=== PATIENT | female | born 1950 ===

== ENCOUNTER 2023-09-20 13:19 | Outpatient (AMB) | payer MEDICARE, OTHER, SELFPAY ==
--- NOTE | 2023-09-20 13:25 | AM.OFFWIN_ITS ---
Intake Vital Signs 09/20/23 13:26 Height 5 ft Weight 162 lb BMI 31.6 BP 126/76 Blood Pressure Location Lt brachial Position Sitting Pulse 71 Pulse Source Pulse Oximeter Temp 97.9 F Temp Source Oral Pulse Oximetry (%) 98 Oxygen Delivery Method Room Air Intake Visit Reasons: [employer] LT wrist Injury due to fall Intake Note: pt is here for left wrist injury due to fall at home off stool Patient Tobacco Use Status: Never used Tobacco Allergies No Known Allergies Allergy (Verified 09/20/23 15:48) Do you need a note to return to daycare/school/sports/work: No HPI HPI Comments History of Present Illness Details 73-year-old female that presents for fra cture of the wrist. Patient was working on a stool fell with her outstretched arm. Having left wrist pain and swelling PFSH Social History Patient Tobacco Use Status: Never used Tobacco Substance Use Type: Marijuana Physical Exam Vital Signs: Last Vital Signs Temp 97.9 F 09/20/23 13:26 Pulse 71 09/20/23 13:26 BP 126/76 09/20/23 13:26 Pulse Ox 98 09/20/23 13:26 Oxygen Delivery Method Room Air 09/20/23 13:26 BMI result Body Mass Index 31.6 Const General: cooperative, healthy appearing, no acute distress and alert Orientation/consciousness: patient oriented x3 Limitations: no limitations HEENT Head: Yes normal to inspection Ears: hearing grossly normal bilaterally General nose exam: Normal external nose present Resp Effort & Inspection: normal respiratory effort and able to speak in complete sentences Cardio Rate: regular rate Skin General skin exam: no rashes or lesions noted Neuro General: patient oriented x3 Extrem Other: Swelling at the left wrist. No obvious bruising. Neurovascularly intact. General: Yes normal to inspection Assessment & Plan Assessment & Plan (1) Distal radius fracture, left: Code(s): S52.502A - Unspecified fracture of the lower end of left radius, initial encounter for closed fracture Qualifiers: Encounter type: initial encounter Fracture type: closed Fracture morphology: unspecified fracture morphology Qualified Code(s): S52.502A - Unspecified fracture of the lower end of left radius, initial encounter for closed fracture Plan: VSS. Suspect distal radius fracture will order x-rays of the wrist forearm and elbow. X-rays consistent with Distal radius fracture of the left wrist. Overlap present on examination. Patient is splinted in a volar splint [facility] notify patient will be presenting for reduction. Orders: Orders XR wrist LT min 3V Today W19.XXXA - Unspecified fall, initial encounter XR forearm LT 2V Today W19.XXXA - Unspecified fall, initial encounter XR elbow LT 2V Today W19.XXXA - Unspecified fall, initial encounter Coding Level of Care Code Est Pt Level 4 (69246) Diagnoses Closed fracture of distal end of left radius, unspecified fracture morphology, initial encounter S52.502A Encounter type: initial encounter Fracture type: closed Fracture morphology: unspecified fracture morphology
[2023-09-20 13:26] VITALS: BP 126/76; PULSE 71; TEMP 36.6; O2SAT 98; BMI 31.6
== END 2023-09-20 15:58 | disposition home or self-care (01) ==
PROVIDERS: PCP Internal Medicine; Visit Provider Physician Assistant
DX: S52.502A Unspecified fracture of the lower end of left radius, initial encounter for closed fracture (principal)
CPT/HCPCS: 99214

== ENCOUNTER 2023-09-20 14:07 | Outpatient (REF) | payer MEDICARE, OTHER, SELFPAY ==
--- NOTE | ~2023-09-20 | XR_ITS ---
EXAMINATION: XR wrist LT min 3V, XR forearm LT 2V, XR elbow LT 2V CLINICAL INFORMATION: Reason for Exam W19.XXXA - Unspecified fall, initial encounter COMPARISON: None. TECHNIQUE: 3 view left elbow, 2 view left forearm, 3 view left wrist radiographs. FINDINGS: Left elbow: Bilateral epicondylar enthesopathic changes are noted characterized by well corticated ossific regions without associated donor sites. Radial head appears intact. No joint effusion identified. Diffuse osteopenia. Left forearm and left wrist: A minimally displaced transverse mildly impacted fracture of the distal radial metaphysis is present. The fracture demonstrates minimal dorsal angulation. No intra-articular extension identified. The ulnar styloid process appears intact. Diffuse osteopenia is visualized. Moderate joint space narrowing and subchondral sclerosis of the first carpal metacarpal joint is visualized along with 25% radial subluxation of the first metacarpal. XR/XR elbow LT 2V IMPRESSION: 1. Minimally displaced, impacted transverse fracture of the distal radius without intra-articular extension. 2. Diffuse osteopenia. 3. Moderate osteoarthritis of the first carpometacarpal joint.
--- NOTE | ~2023-09-20 | XR_ITS ---
EXAMINATION: XR wrist LT min 3V, XR forearm LT 2V, XR elbow LT 2V CLINICAL INFORMATION: Reason for Exam W19.XXXA - Unspecified fall, initial encounter COMPARISON: None. TECHNIQUE: 3 view left elbow, 2 view left forearm, 3 view left wrist radiographs. FINDINGS: Left elbow: Bilateral epicondylar enthesopathic changes are noted characterized by well corticated ossific regions without associated donor sites. Radial head appears intact. No joint effusion identified. Diffuse osteopenia. Left forearm and left wrist: A minimally displaced transverse mildly impacted fracture of the distal radial metaphysis is present. The fracture demonstrates minimal dorsal angulation. No intra-articular extension identified. The ulnar styloid process appears intact. Diffuse osteopenia is visualized. Moderate joint space narrowing and subchondral sclerosis of the first carpal metacarpal joint is visualized along with 25% radial subluxation of the first metacarpal. XR/XR forearm LT 2V IMPRESSION: 1. Minimally displaced, impacted transverse fracture of the distal radius without intra-articular extension. 2. Diffuse osteopenia. 3. Moderate osteoarthritis of the first carpometacarpal joint.
--- NOTE | ~2023-09-20 | XR_ITS ---
EXAMINATION: XR wrist LT min 3V, XR forearm LT 2V, XR elbow LT 2V CLINICAL INFORMATION: Reason for Exam W19.XXXA - Unspecified fall, initial encounter COMPARISON: None. TECHNIQUE: 3 view left elbow, 2 view left forearm, 3 view left wrist radiographs. FINDINGS: Left elbow: Bilateral epicondylar enthesopathic changes are noted characterized by well corticated ossific regions without associated donor sites. Radial head appears intact. No joint effusion identified. Diffuse osteopenia. Left forearm and left wrist: A minimally displaced transverse mildly impacted fracture of the distal radial metaphysis is present. The fracture demonstrates minimal dorsal angulation. No intra-articular extension identified. The ulnar styloid process appears intact. Diffuse osteopenia is visualized. Moderate joint space narrowing and subchondral sclerosis of the first carpal metacarpal joint is visualized along with 25% radial subluxation of the first metacarpal. XR/XR wrist LT min 3V IMPRESSION: 1. Minimally displaced, impacted transverse fracture of the distal radius without intra-articular extension. 2. Diffuse osteopenia. 3. Moderate osteoarthritis of the first carpometacarpal joint.
== END 2023-09-20 14:08 | disposition home or self-care (01) ==
LOC: HO.HMGCX 14:07
PROVIDERS: Visit Provider Physician Assistant
DX: Z13.89 Encounter for screening for other disorder (principal)
CPT/HCPCS: 73070; 73090; 73110

== ENCOUNTER 2023-09-20 15:26 | Emergency (ER) | payer MEDICARE, OTHER, SELFPAY ==
[2023-09-20 15:45] VITALS: BP 176/91; PULSE 83; RESP 18; TEMP 36.9; O2SAT 97; BMI 32.6
--- NOTE | 2023-09-20 15:45 | ED.UPPEXIN ---
HPI - Extremity Injury (Upper) General Chief Complaint: Extremity Injury, Upper Stated Complaint: sent from stating left arm needs traction Time Seen by Provider: 09/20/23 16:38 Source: patient Mode of arrival: ambulatory Limitations: no limitations History of Present Illness HPI narrative: Apparently patient fell on standing on the plastic stool landed on her left hand seen nurse practitioner at urgent care the x-ray showed impacted distal radial fracture advised to come here for reduction no other injury Related Data Home Medications Medication Instructions Recorded Confirmed albuterol sulfate 90 mcg/actuation inhalation 09/20/23 aerosol inhaler amlodipine 5 mg tablet 5 mg PO DAILY 09/20/23 atorvastatin 10 mg tablet 10 mg PO DAILY 09/20/23 citalopram 20 mg tablet 20 mg PO DAILY 09/20/23 montelukast 10 mg tablet 10 mg PO DAILY 09/20/23 Previous Rx's Medication Instructions Recorded tramadol 50 mg tablet 50 mg PO Q6-8H PRN pain #20 tabs 09/20/23 Allergies Allergy/AdvReac Type Severity Reaction Status Date / Time No Known Allergies Allergy Verified 09/20/23 15:48 Review of Systems Review of Systems: Yes all other systems are reviewed and are negative [facility] Social History Social History Patient Tobacco Use Status: Never used Tobacco Smoked in Last 30 Days: No Use of substances other than those prescribed or required for medical reasons: Yes Substance Use Type: Marijuana Substance Use Frequency: Weekly Substance Use Frequency Other:: 2 Last Used Substance: Weeks (ago) Advance Directives: No Advance Directives Information Provided: No Physical Exam Vital Signs: Vital Signs: Last Vital Signs Temp 98.5 F 09/20/23 15:45 Pulse 83 09/20/23 15:45 Resp 18 09/20/23 15:45 BP 176/91 H 09/20/23 15:45 Pulse Ox 97 09/20/23 15:45 O2 Del Method Room Air 09/20/23 15:45 BMI result Body Mass Index 32.6 Extrem: Elbow/forearm/wrist images: 1. Mild swelling in volar wrist splint neurovascular intact Course Course Course Narrative: This is a rapid medical exam: Additional HPI, ROS, PE not included below will be deferred to primary provider. Patient is a 73-year-old female presenting to the emergency department from urgent care with known distal radius fracture requiring reduction. She arrives with L wrist splinted. She fell off a small plastic stool earlier today, turned and fell. Denies head strike or loss of consciousness, not anticoagulated. Plan: x-ray, likely needs reduction Medical Decision Making Medical Decision Making MDM Narrative: Patient impacted left distal and radial fracture case discussed with orthopedic does not need reduction at this time follow-up with outpatient Independent Interpretation I performed an independent interpretation of an: Plain X-Ray Radiology Impression Discussion of test interpretation with radiology: I have reviewed the radiologist's reading. Radiologist Impression: XR/XR wrist LT min 3V IMPRESSION: 1. Minimally displaced, impacted transverse fracture of the distal radius without intra-articular extension. 2. Diffuse osteopenia. 3. Moderate osteoarthritis of the first carpometacarpal joint. Discharge Plan Discharge Clinical Impression: Distal radius fracture, left Patient Disposition: Home, Self-Care Instructions: Wrist Fracture in Adults (ED) Additional Instructions: Wear the splint and sling for support as advised Follow-up with orthopedics next week Tramadol for pain Keep left arm elevated Prescriptions: New tramadol 50 mg tablet 50 mg PO Q6-8H PRN (Reason: pain) Qty: 20 0RF No Action atorvastatin 10 mg tablet 10 mg PO DAILY montelukast 10 mg tablet 10 mg PO DAILY albuterol sulfate 90 mcg/actuation HFA aerosol inhaler inhalation amlodipine 5 mg tablet 5 mg PO DAILY citalopram 20 mg tablet 20 mg PO DAILY Referrals: Jered Stoddard MD [Physician] - 3 days
[2023-09-20] MEDS: Ketorolac Tromethamine 30 MG/ML VIAL IVPUSH (17:29)
[2023-09-20 17:30] VITALS: BP 157/75; PULSE 84; RESP 16; O2SAT 98
[2023-09-20 18:01] VITALS: BP 159/81; PULSE 85; RESP 16; TEMP 36.8; O2SAT 98
== END 2023-09-20 18:12 | disposition home or self-care (01) ==
PROVIDERS: Emergency Provider Internal Medicine; PCP Internal Medicine
DX: S52.502A Unspecified fracture of the lower end of left radius, initial encounter for closed fracture (principal); W08.XXXA Fall from other furniture, initial encounter; Y93.9 Activity, unspecified; Y92.9 Unspecified place or not applicable; Y99.9 Unspecified external cause status
CPT/HCPCS: 73070; 73090; 73110; 96374; 99284; J1885

== ENCOUNTER 2023-09-22 09:45 | Outpatient (REF) | payer MEDICARE, OTHER, SELFPAY ==
--- NOTE | ~2023-09-22 | XR_ITS ---
EXAMINATION: XR WRIST, LEFT CLINICAL INFORMATION: Pain. COMPARISON: Radiograph left wrist 09/20/2023. TECHNIQUE: PA, lateral, and oblique views of the left wrist. FINDINGS: Again noted distal transverse radial fracture with slightly increased dorsal displacement of the distal fragment compared to 09/20/2023, although this subtle change may be related with differences in positioning. Similar degree of surrounding soft tissue swelling. No interval injuries. XR/XR wrist LT min 3V IMPRESSION: Distal radial fracture with possibly slightly increased dorsal displacement of the distal fragment compared to 09/20/2023.
== END 2023-09-22 09:46 | disposition home or self-care (01) ==
LOC: HO.HOSX 09:45
PROVIDERS: Visit Provider Physician Assistant
DX: S52.502A Unspecified fracture of the lower end of left radius, initial encounter for closed fracture (principal); W08.XXXA Fall from other furniture, initial encounter; Y93.9 Activity, unspecified; Y92.9 Unspecified place or not applicable; Y99.9 Unspecified external cause status
CPT/HCPCS: 73110; 99202

== ENCOUNTER 2023-09-22 13:51 | Outpatient (AMB) | payer MEDICARE, OTHER, SELFPAY ==
--- NOTE | 2023-09-22 14:18 | A.OFFVIS_ITS ---
Intake Vital Signs 09/22/23 14:23 Height 5 ft Weight 167 lb BMI 32.6 Intake Visit Reasons: FC - LT Distal radius fx, DOI 09/20/23 Intake Note: Paulina is a 73 year old hand dominant female who presents today for a evaluation of her left distal radius fx, DOI 09/20/23. Patient reports she was standing on a plastic stool when she turned to clean and made her fall onto her left hand. Currently, is having a lot of throbbing pain. Allergies No Known Allergies Allergy (Verified 09/22/23 14:21) HPI FC - LT Distal radius fx, DOI 09/20/23 HPI Details 73-year-old female who presents in the [facility] today, as a new patient, for an evaluation of left wrist pain. Patient [facility] on 09/20/2023 status a fall off a stool while at home. She was placed in a volar splint and was referred to the ED for reduction of the wrist. Patient presented to the ED the same day. It was discussed that the patient did not need her wrist reduced, therefore, she was placed back into the splint with a sling and was given a prescription for Tramadol 50 mg PO Q6-8H PRN. While in the office today she reports she was standing on a plastic stool when she sent to reach and fell. She reports having a lot of throbbing pain. She reports taking the Tramadol but is not getting relief. She states she has been taking Motrin with mild relief. Patient presents in the office with a male family member. [facility] Social History (Updated 09/22/23 @ 14:23 by Tyler Roque) Alcohol intake: current Alcohol intake frequency: 0-2 drinks per day Alcohol type: other Patient Tobacco Use Status: Never used Tobacco Substance Use Type: Marijuana Current occupational status: retired Current occupation: right hand dominant Review of Systems Const All systems reviewed & are unremarkable except as noted in HPI and below Physical Exam Vital Signs: BMI result Body Mass Index 32.6 Const General: cooperative and no acute distress Orientation/consciousness: patient oriented x3 Resp Effort & Inspection: normal respiratory effort and able to speak in complete sentences Cardio Rate: regular rate Peripheral pulses: Peripheral pulses 2+ throughout GI Palpation (GI): Soft to palpation Skin General skin exam: no rashes or lesions noted Lesions: no lesions Rashes: no rashes Neuro General: patient oriented x3 Extrem Other: Left wrist: Circumferential edema extending to the dorsal aspect of the hand. Able to flex and extend all digits. Lacking 4 cm from making a closed fist. Sensation intact. Capillary refill is brisk. Radial pulse intact. Tenderness to palpation at the fracture site. Office Procedures Casting/Splints Other Splint (volar short arm splint) Procedure code (CPT) selection complete Fracture Care Fracture Billing Code: Fracture Billing Code Assessment & Plan Assessment & Plan (1) Distal radius fracture, left: Comment: Minimally displaced, impacted transverse fracture of the distal radius without intra-articular extension. Code(s): S52.502A - Unspecified fracture of the lower end of left radius, initial encounter for closed fracture Qualifiers: Encounter type: initial encounter Fracture morphology: unspecified fracture morphology Fracture type: closed Qualified Code(s): S52.502A - Unspecified fracture of the lower end of left radius, initial encounter for closed fracture Plan Ms. Arvizu is a 73-year-old female who presents in the office today, as a new patient, for an evaluation of left wrist pain. Patient presented to the [facility] on 09/20/2023 status a fall off a stool while at home. She was placed in a volar splint and was referred to the ED for reduction of the wrist. Patient presented to the ED the same day. It was discussed that the patient did not need her wrist reduced, therefore, she was placed back into the splint with a sling and was given a prescription for Tramadol 50 mg PO Q6-8H PRN. While in the office today she reports she was standing on a plastic stool when she sent to reach and fell. She reports having a lot of throbbing pain. She reports taking the Tramadol but is not getting relief. She states she has been taking Motrin with mild relief. Patient presents in the office with a male family member. Dr. Castañeda was available to speak with me about the case and review x-rays, she was not available to see the patient due to being in the OR and a col laborative treatment plan was made. We discussed conservative verses surgical treatment. At this time we will closely monitor the alignment of the left wrist. We would like to repeat x-rays in one week. She was placed in the a new volar splint, off the shelf, while in the office today. A prescription for Ibuprofen 600 mg TID PRN was sent to the pharmacy. I encouraged the patient to rest the left upper extremity on a pillow to help with edema in the extremity. We discussed working on gentle ROM and making a closed fist with fingers. Follow up will be in one week with repeat x-rays with Dr. Castañeda in the office, or sooner if needed. X-rays of the left wrist which were obtained while in the office today and were reviewed by me, Naida Brown PA-C, revealed a distal radius fracture. X-rays of the left upper extremity, obtained on 09/20/2023 at the [facility], revealed: 1. Minimally displaced, impacted transverse fracture of the distal radius without intra-articular extension. 2. Diffuse osteopenia. 3. Moderate osteoarthritis of the first carpometacarpal joint. Orders: Orders XR wrist LT min 3V Today M25.539 - Pain in unspecified wrist Medications: New ibuprofen 600 mg PO TID PRN 90 tabs 0RF pain 30 days Patient Instructions: Scribed by Yesenia Alvarado medical transcription editor, for Naida Brown PA-C on 09/22/2023 at 1:53 pm, EST. Coding Level of Care Code New Pt Level 4 (68867) Diagnoses Closed fracture of distal end of left radius, unspecified fracture morphology, initial encounter S52.502A Encounter type: initial encounter Fracture morphology: unspecified fracture morphology Fracture type: closed CPT Codes Fracture Care - Fracture Billing Code: Fracture Billing Code ([id number])
[2023-09-22 14:23] VITALS: BMI 32.6
== END 2023-09-22 15:37 | disposition home or self-care (01) ==
PROVIDERS: PCP Internal Medicine; Visit Provider Physician Assistant
DX: S52.502A Unspecified fracture of the lower end of left radius, initial encounter for closed fracture (principal)
CPT/HCPCS: 99203

== ENCOUNTER 2023-09-30 11:25 | Outpatient (REF) | payer MEDICARE, OTHER, SELFPAY ==
--- NOTE | ~2023-09-30 | XR_ITS ---
EXAMINATION: XR WRIST, LEFT CLINICAL INFORMATION: Pain and unspecified rest, splint off. COMPARISON: 09/29/2023, 09/20/2003 TECHNIQUE: PA, lateral, and oblique views of the left wrist. FINDINGS: Redemonstration of a transverse fracture of the distal radius with slight dorsal displacement of the distal fracture fragment. There appears to be slightly more displacement/impaction, best appreciated on the oblique view, although this apparent change could be related to differences in positioning. Persistent soft tissue swelling at the wrist. Bones are diffusely demineralized. Multiple joint arthritic changes. XR/XR wrist LT min 3V IMPRESSION: Redemonstration of a transverse fracture of the distal radius with slight dorsal displacement of the distal fracture fragment. There appears to be slightly more displacement/impaction, best appreciated on the oblique view, although this apparent change could be related to differences in positioning.
== END 2023-09-30 11:26 | disposition home or self-care (01) ==
LOC: HO.HOSX 11:25
PROVIDERS: Visit Provider Physician Assistant
DX: S52.502D Unspecified fracture of the lower end of left radius, subsequent encounter for closed fracture with routine healing (principal); S62.647D Nondisplaced fracture of proximal phalanx of left little finger, subsequent encounter for fracture with routine healing
CPT/HCPCS: 25600; 26720; 73110; 99212

== ENCOUNTER 2023-09-30 14:21 | Outpatient (AMB) | payer MEDICARE, OTHER, SELFPAY ==
--- NOTE | 2023-09-30 14:35 | MHC.OFFVIS ---
Intake Vital Signs 09/30/23 14:36 Height 5 ft Weight 167 lb BMI 32.6 Intake Visit Reasons: ov-LT Distal radius fx, DOI 09/20/23 Intake Note: Paulnia is a 73 year old right hand dominant female who presents today for a follow up of her left distal radius fx, DOI 09/20/23. Patient reports she is still having pain on the lateral side of her hand and also on the volar aspect of the wrist. Denies numbness and tignling. Allergies No Known Allergies Allergy (Verified 09/30/23 14:36) HPI ov-LT Distal radius fx, DOI 09/20/23 HPI Details 73-year-old right hand dominant female who presents in the office today for a follow up of a left distal radius fracture, which occurred on 09/20/2023 status a fall off a stool while at home. I last saw the patient in the office on 09/22/2023 at which time she was placed in a volar wrist splint and she was prescribed Ibuprofen 600 mg TID PRN. While in the office today the patient reports she is still having pain on the lateral aspect of the left hand and volar aspect of the left wrist. She denies numbness or tingling. Patient reports pain in the left ring finger. [facility] Social History Alcohol intake: current Alcohol intake frequency: 0-2 drinks per day Alcohol type: other Patient Tobacco Use Status: Never used Tobacco Substance Use Type: Marijuana Current occupational status: retired Current occupation: right hand dominant Review of Systems Const All systems reviewed & are unremarkable except as noted in HPI and below Physical Exam Vital Signs: BMI result Body Mass Index 32.6 Const General: cooperative, healthy appearing and no acute distress Resp Effort & Inspection: normal respiratory effort and able to speak in complete sentences Cardio Rate: regular rate Peripheral pulses: Peripheral pulses 2+ throughout GI Palpation (GI): Soft to palpation Skin Lesions: no lesions Rashes: no rashes Extrem Other: Left wrist/hand: Normal to inspection. Tenderness to palpation over the distal radius as well as tenderness to palpation over the middle phalanx of the little finger. Able to make a full fist and extension of all digits. Sensation intact. Capillary refill is brisk. Office Procedures Casting/Splints 25134-Siku/Wrist Cast Application Procedure code (CPT) selection complete Assessment & Plan Assessment & Plan (1) Distal radius fracture, left: Comment: Minimally displaced, impacted transverse fracture of the distal radius without intra-articular extension. Code(s): S52.502A - Unspecified fracture of the lower end of left radius, initial encounter for closed fracture Qualifiers: Encounter type: initial encounter Fracture morphology: unspecified fracture morphology Fracture type: closed Qualified Code(s): S52.502A - Unspecified fracture of the lower end of left radius, initial encounter for closed fracture (2) Fracture of phalanx of left little finger: Code(s): S62.607A - Fracture of unspecified phalanx of left little finger, initial encounter for closed fracture Qualifiers: Encounter type: subsequent encounter Fracture alignment: nondisplaced Fracture healing: with routine healing Fracture type: closed Phalanx: proximal Qualified Code(s): S62.647D - Nondisplaced fracture of proximal phalanx of left little finger, subsequent encounter for fracture with routine healing Plan Ms. Arvizu is a 73-year-old right hand dominant female who presents in the office today for a follow up of a left distal radius fracture, which occurred on 09/20/2023 status a fall off a stool while at home. I last saw the patient in the office on 09/22/2023 at which time she was placed in a volar wrist splint and she was prescribed Ibuprofen 600 mg TID PRN. While in the office today the patient reports she is still having pain on the lateral aspect of the left hand and volar aspect of the left wrist. She denies numbness or tingling. Patient reports pain in the left ring finger. Imaging was reviewed with Dr. Castañeda who was available to speak with me, but not available to see the patient. A collaborative treatment plan was made. Patient will be placed in a custom made short arm cast with a finger splint on the little finger locked in extension. She will be able to move at the MCP joint of the 5th digit. She was educated to refrain from lifting anything greater than a coffee cup or cell phone. Also no pushing or pulling with the left upper extremity. Follow up will be in 3 weeks with repeat x-rays and anticipation of coming out of the cast, or sooner if needed. X-rays of the left wrist which were obtained while in the office today and were reviewed by me, Naida Brown PA-C, revealed routine healing of a left distal radius fracture with no evidence of progressive dorsal angulation. Likely fracture at the proximal end of the middle phalanx of the small finger. Orders: Orders XR wrist LT min 3V Today M25.539 - Pain in unspecified wrist Patient Instructions: Scribed by Yesenia Alvarado medical technologist clinical, for Naida Brown PA-C on 09/30/2023 at 2:42 pm, EST. Coding Level of Care Code Global (88266) Diagnoses Closed fracture of distal end of left radius, unspecified fracture morphology, initial encounter S52.502A Encounter type: initial encounter Fracture morphology: unspecified fracture morphology Fracture type: closed Closed nondisplaced fracture of proximal phalanx of left little finger with routine healing, subsequent encounter S62.647D Encounter type: subsequent encounter Fracture alignment: nondisplaced Fracture healing: with routine healing Fracture type: closed Phalanx: proximal CPT Codes Casting - CPT: 95379-Szny/Wrist Cast Application ([id number])
[2023-09-30 14:36] VITALS: BMI 32.6
== END 2023-09-30 15:50 | disposition home or self-care (01) ==
PROVIDERS: PCP Internal Medicine; Visit Provider Physician Assistant
DX: S52.502A Unspecified fracture of the lower end of left radius, initial encounter for closed fracture (principal); S62.647D Nondisplaced fracture of proximal phalanx of left little finger, subsequent encounter for fracture with routine healing
CPT/HCPCS: 25600; 26720; 99213

== ENCOUNTER 2023-10-21 14:24 | Outpatient (AMB) | payer MEDICARE, OTHER, SELFPAY ==
[2023-10-21 14:45] VITALS: BMI 32.6
--- NOTE | 2023-10-21 14:45 | A.OFFVIS_ITS ---
Intake Vital Signs 10/21/23 14:45 Height 5 ft Weight 167 lb BMI 32.6 Intake Visit Reasons: OV-LT Distal radius fx, DOI 09/20/23 Intake Note: Paulina Vazquez 73 yr old female presents today for her follow up visit for her left distal radius fx from 09/20/23. Cast removed and xrays updated in office. States she has soreness and minor aches on her dorsaum aspect of wrist. Allergies No Known Allergies Allergy (Verified 10/21/23 14:47) HPI OV-LT Distal radius fx, DOI 09/20/23 HPI Details 73-year-old right hand dominant female delvin malin presents in the office today for a follow up of a left distal radius fracture, which occurred on 09/20/2023 status a fall off a stool while at home. I last saw the patient in the office on 09/30/2023 when she was placed in a short arm cast with a finger splint on the little finger locked in extension, but with the ability to move the MCP joint of the 5th digit. She was educated to refrain from lifting anything greater than a coffee cup or cell phone. Also, no pushing or pulling with the left upper extremity. Cast was removed in the office today. She reports soreness and minor aches on her dorsal aspect of the left wrist. [facility] Social History Alcohol intake: current Alcohol intake frequency: 0-2 drinks per day Alcohol type: other Patient Tobacco Use Status: Never used Tobacco Substance Use Type: Marijuana Current occupational status: retired Current occupation: right hand dominant Review of Systems Const All systems reviewed & are unremarkable except as noted in HPI and below Physical Exam Vital Signs: BMI result Body Mass Index 32.6 Const General: cooperative, healthy appearing and no acute distress Resp Effort & Inspection: normal respiratory effort and able to speak in complete sentences Cardio Rate: regular rate Peripheral pulses: Peripheral pulses 2+ throughout GI Palpation (GI): Soft to palpation Skin Lesions: no lesions Rashes: no rashes Extrem Other: Left wrist/hand: Normal to inspection. Mild tenderness to palpation over the distal radius. Able to perform wrist flexion and extension with stiffness. Able to make a full fist and extension of all digits. Sensation intact. Capillary refill is brisk. Assessment & Plan Assessment & Plan (1) Distal radius fracture, left: Comment: Minimally displaced, impacted transverse fracture of the distal radius without intra-articular extension. Code(s): S52.502A - Unspecified fracture of the lower end of left radius, initial encounter for closed fracture Qualifiers: Encounter type: initial encounter Fracture morphology: unspecified fracture morphology Fracture type: closed Qualified Code(s): S52.502A - Unspecified fracture of the lower end of left radius, initial encounter for closed fracture (2) Fracture of phalanx of left little finger: Code(s): S62.607A - Fracture of unspecified phalanx of left little finger, initial encounter for closed fracture Qualifiers: Encounter type: subsequent encounter Fracture alignment: nondisplaced Fracture healing: with routine healing Fracture type: closed Phalanx: proximal Qualified Code(s): S62.647D - Nondisplaced fracture of proximal phalanx of left little finger, subsequent encounter for fracture with routine healing Plan Ms. Arvizu is a 73-year-old right hand dominant female who presents in the office today for a follow up of a left distal radius fracture, which occurred on 09/20/2023 status a fall off a stool while at home. I last saw the patient in the office on 09/30/2023 when she was placed in a short arm cast with a finger splint on the little finger locked in extension, but with the ability to move the MCP joint of the 5th digit. She was educated to refrain from lifting anything greater than a coffee cup or cell phone. Also, no pushing or pulling with the left upper extremity. Cast was removed in the office today. She reports soreness and minor aches on her dorsal aspect of the left wrist. Patient will be transitioned into a Velcro wrist splint, off the shelf. She was educated to remove the splint for hygiene and gentle ROM exercises only. A referral to OT was placed in the office today to work on gentle ROM. I educated the patient that she needs to attend OT for a few weeks before she should consider driving. OT will tell her when she can properly turn the wheel. A paper prescription for OT was supplied to the patient in the office today. Follow up will be in 4 weeks for a ROM check, or sooner if needed. X-rays of the left wrist/hand which were obtained while in the office today and were reviewed by me, Naida Brown PA-C, revealed routine healing of a left distal radius fracture and left little finger fracture. Orders: Orders XR hand LT min 3V Today M79.643 - Pain in unspecified hand XR wrist LT min 3V Today M25.539 - Pain in unspecified wrist OT Evaluation and Treatment Today S52.502A - Unspecified fracture of the lower end of left radius, initial encounter for closed fracture, S62.647D - Nondisplaced fracture of proximal phalanx of left little finger, subsequent encounter for fracture with routine healing Patient Instructions: Scribed by Yesenia Alvarado medical stenographer, for Naida Brown ABEL on 10/21/2023 at 2:08 pm, EST. Coding Level of Care Code Global (07656) Diagnoses Closed fracture of distal end of left radius, unspecified fracture morphology, initial encounter S52.502A Encounter type: initial encounter Fracture morphology: unspecified fracture morphology Fracture type: closed Closed nondisplaced fracture of proximal phalanx of left little finger with routine healing, subsequent encounter S62.647D Encounter type: subsequent encounter Fracture alignment: nondisplaced Fracture healing: with routine healing Fracture type: closed Phalanx: proximal
== END 2023-10-21 15:37 | disposition home or self-care (01) ==
PROVIDERS: PCP Internal Medicine; Visit Provider Physician Assistant
DX: S52.502A Unspecified fracture of the lower end of left radius, initial encounter for closed fracture (principal); S62.647D Nondisplaced fracture of proximal phalanx of left little finger, subsequent encounter for fracture with routine healing
CPT/HCPCS: 99024

== ENCOUNTER 2023-10-21 15:08 | Outpatient (REF) | payer MEDICARE, OTHER, SELFPAY ==
--- NOTE | ~2023-10-21 | XR_ITS ---
EXAMINATION: XR LEFT HAND AND WRIST CLINICAL INFORMATION: Pain in unspecified hand, cast and finger splint off. COMPARISON: 09/30/2023, 09/22/2023, 09/20/2023. TECHNIQUE: 3 views of the left hand and 3 views of the left wrist. FINDINGS: Bones are diffusely demineralized. Multi joint arthritic changes redemonstrated. Redemonstration of an impacted transverse fracture of the distal radius, similar in alignment. Mild interval bridging callus formation. XR/XR hand LT min 3V IMPRESSION: Redemonstration of an impacted transverse fracture of the distal radius, similar in alignment. Mild interval bridging callus formation.
--- NOTE | ~2023-10-21 | XR_ITS ---
EXAMINATION: XR LEFT HAND AND WRIST CLINICAL INFORMATION: Pain in unspecified hand, cast and finger splint off. COMPARISON: 09/30/2023, 09/22/2023, 09/20/2023. TECHNIQUE: 3 views of the left hand and 3 views of the left wrist. FINDINGS: Bones are diffusely demineralized. Multi joint arthritic changes redemonstrated. Redemonstration of an impacted transverse fracture of the distal radius, similar in alignment. Mild interval bridging callus formation. XR/XR wrist LT min 3V IMPRESSION: Redemonstration of an impacted transverse fracture of the distal radius, similar in alignment. Mild interval bridging callus formation.
== END 2023-10-21 15:09 | disposition home or self-care (01) ==
LOC: HO.HOSX 15:08
PROVIDERS: Visit Provider Physician Assistant
DX: S52.502D Unspecified fracture of the lower end of left radius, subsequent encounter for closed fracture with routine healing (principal); S62.647D Nondisplaced fracture of proximal phalanx of left little finger, subsequent encounter for fracture with routine healing
CPT/HCPCS: 73110; 73130; 99212

== ENCOUNTER 2023-11-21 12:56 | Outpatient (AMB) | payer MEDICARE, OTHER, SELFPAY ==
--- NOTE | 2023-11-21 13:11 | A.OFFVIS_ITS ---
Intake Visit Reasons: OV-LT Distal radius fx-w/xray DOI 09/20/23 Intake Note: Paulina Vazquez is a 73 year old right hand dominant female who presents today for a ROM check s/p left distal radius fx, 09/20/23. Patient reports she hasn't started physical therapy due to trying to call a different office than here. and she feels like she is having a burning sensation in her lateral aspect of the wrist. Patient reports having some numbness that start in the base of her right thumb. Allergies No Known Allergies Allergy (Verified 11/21/23 13:14) HPI HPI OV-LT Distal radius fx-w/xray DOI 09/20/23: Details: 73-year-old right hand dominant female who presents in the office today for a ROM check and follow up of a left distal radius fracture, which occurred on 09/20/2023 status a fall off a stool while at home. I last saw the patient in the office on 09/30/2023 when she was placed in a short arm cast with a finger splint on the little finger locked in extension with no pushing or pulling with the left upper extremity. While in the office today the patient reports she has not started physical therapy due to calling the wrong location. She reports feeling a burning sensation along the lateral aspect of the left wrist. She reports mild numbness at the base of her thumb. [facility] Social History Alcohol intake: current Alcohol intake frequency: 0-2 drinks per day Alcohol type: other Patient Tobacco Use Status: Never used Tobacco Substance Use Type: Marijuana Current occupational status: retired Current occupation: right hand dominant Review of Systems Const All systems reviewed & are unremarkable except as noted in HPI and below Physical Exam Const General: cooperative, healthy appearing and no acute distress Resp Effort & Inspection: normal respiratory effort and able to speak in complete sentences Cardio Rate: regular rate Peripheral pulses: Peripheral pulses 2+ throughout GI Palpation (GI): Soft to palpation Skin Lesions: no lesions Rashes: no rashes Extrem Other: Left wrist/hand: Normal to inspection. Mild tenderness to palpation over the distal radius. Able to perform wrist flexion and extension with stiffness. Able to make a full fist and extension of all digits. Sensation intact. Capillary refill is brisk. Assessment & Plan Assessment & Plan (1) Distal radius fracture, left: Comment: Minimally displaced, impacted transverse fracture of the distal radius without intra-articular extension. Code(s): S52.502A - Unspecified fracture of the lower end of left radius, initial encounter for closed fracture Category: Medical Qualifiers: Encounter type: initial encounter Fracture morphology: unspecified fracture morphology Fracture type: closed Qualified Code(s): S52.502A - Unspecified fracture of the lower end of left radius, initial encounter for closed fracture (2) Fracture of phalanx of left little finger: Code(s): S62.607A - Fracture of unspecified phalanx of left little finger, initial encounter for closed fracture Category: Medical Qualifiers: Encounter type: subsequent encounter Fracture alignment: nondisplaced Fracture healing: with routine healing Fracture type: closed Phalanx: proximal Qualified Code(s): S62.647D - Nondisplaced fracture of proximal phalanx of left little finger, subsequent encounter for fracture with routine healing Plan Ms. Arvizu is a 73-year-old right hand dominant female who presents in the office today for a ROM check and follow up of a left distal radius fracture, which occurred on 09/20/2023 status a fall off a stool while at home. I last saw the patient in the office on 09/30/2023 when she was placed in a short arm cast with a finger splint on the little finger locked in extension with no pushing or pulling with the left upper extremity. While in the office today the patient reports she has not started occupational therapy due to calling the wrong location. She reports feeling a burning sensation along the lateral aspect of the left wrist. She reports mild numbness at the base of her thumb. Patient reports she did not attend any occupational therapy. She reports after her last appointment she attempted to contact one facility but was told they do not offer occupational therapy. Then she went on vacation and did not attempt to be seen once she returned. I think the only thing that is going to help this patient at this time is to participate in occupational therapy. Her main complaint is a burning sensation along the ulnar aspect of the hand and wrist. I do believe that with occupational therapy this can get better with her ROM. Therefore, a new referral was placed today. Follow up will be 8 weeks, or sooner if needed. X-rays of the left wrist which were obtained while in the office today and were reviewed by me, Naida Brown PA-C, revealed a healed distal radius fracture. Orders: Orders XR wrist LT min 3V Today M25.539 - Pain in unspecified wrist OT Evaluation and Treatment Today S62.647D - Nondisplaced fracture of proximal phalanx of left little finger, subsequent encounter for fracture with routine healing Patient Instructions: Scribed by Yesenia Alvarado district medical examiner, for Naida Brown PA-C on 11/21/2023 at 1:35 pm, EST. Coding Level of Care Code Global (86056) Diagnoses Closed fracture of distal end of left radius, unspecified fracture morphology, initial encounter S52.502A Encounter type: initial encounter Fracture morphology: unspecified fracture morphology Fracture type: closed Closed nondisplaced fracture of proximal phalanx of left little finger with routine healing, subsequent encounter S62.647D Encounter type: subsequent encounter Fracture alignment: nondisplaced Fracture healing: with routine healing Fracture type: closed Phalanx: proximal
== END 2023-11-21 13:32 | disposition home or self-care (01) ==
PROVIDERS: PCP Internal Medicine; Visit Provider Physician Assistant
DX: S52.502A Unspecified fracture of the lower end of left radius, initial encounter for closed fracture (principal); S62.647D Nondisplaced fracture of proximal phalanx of left little finger, subsequent encounter for fracture with routine healing
CPT/HCPCS: 99024

== ENCOUNTER 2023-11-21 14:31 | Outpatient (REF) | payer MEDICARE, OTHER, SELFPAY ==
--- NOTE | ~2023-11-21 | XR_ITS ---
EXAMINATION: XR WRIST, LEFT CLINICAL INFORMATION: Pain in the wrist COMPARISON: Prior examinations most recent October 2023 TECHNIQUE: PA, lateral, and oblique views of the left wrist. FINDINGS: Healing distal radius fracture redemonstrated with some calcification crossing the fracture essentially unchanged. There is some persistent minimal dorsal tilt of the articular surface unchanged. Mild to moderate osteoarthritis of the first carpometacarpal joint as seen before. 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 XR/XR wrist LT min 3V IMPRESSION: Healing distal radius fracture without change compared with [id number].
== END 2023-11-21 14:32 | disposition home or self-care (01) ==
LOC: HO.HOSX 14:31
PROVIDERS: Visit Provider Physician Assistant
DX: S52.502D Unspecified fracture of the lower end of left radius, subsequent encounter for closed fracture with routine healing (principal); S62.647D Nondisplaced fracture of proximal phalanx of left little finger, subsequent encounter for fracture with routine healing
CPT/HCPCS: 73110; 99212